=== PATIENT | male | born 1985 | race Caucasian/White ===

== ENCOUNTER 2017-03-23 01:23 | Emergency (ER) | payer MEDICAID, OTHER, SELFPAY ==
[~2017-03-23] VITALS: Ht 182.9 cm; Wt 85.8 kg
[2017-03-23 01:23] VITALS: BP 128/74
== END 2017-03-23 02:25 | disposition home or self-care (01) ==
LOC: ED 01:50
DX: L02.416 Cutaneous abscess of left lower limb (principal); L03.116 Cellulitis of left lower limb; Z88.1 Allergy status to other antibiotic agents
CPT/HCPCS: 99283

== ENCOUNTER 2019-09-22 19:07 | Emergency (ER) | payer MEDICAID ==
[~2019-09-22] VITALS: Ht 182.9 cm; Wt 88.4 kg
[2019-09-22 19:15] VITALS: BP 140/74
[2019-09-22] MEDS ORDERED: IBUPROFEN 200 MG TABLET PO ONE (20:00)
[2019-09-22] MEDS ORDERED: IBUPROFEN 200 MG TABLET ONE (20:34)
== END 2019-09-22 20:44 | disposition home or self-care (01) ==
LOC: ED 20:30
DX: K04.7 Periapical abscess without sinus (principal); K02.9 Dental caries, unspecified
CPT/HCPCS: 99283

== ENCOUNTER 2021-02-21 16:41 | Emergency (ER) | payer MEDICAID, OTHER ==
[~2021-02-21] VITALS: Ht 182.9 cm; Wt 93.7 kg
[2021-02-21 16:54] VITALS: BP 98/73
[2021-02-21] MEDS ORDERED: LIDODERM 5% PATCH TD ONE ×2 (17:21→17:30)
[2021-02-21] MEDS ORDERED: KETOROLAC 30 MG/1 ML ONE (17:21)
[2021-02-21] MEDS ORDERED: ACETAMINOPHEN 500 MG TABLET ONE (17:21)
[2021-02-21] MEDS ORDERED: ACETAMINOPHEN 500 MG TABLET PO ONE (17:30)
[2021-02-21] MEDS ORDERED: KETOROLAC 30 MG/1 ML IM ONE (17:30)
[2021-02-21 18:25] LABS: AMPHETAMINE SCREEN, URINE Negative (Negative); BARBITURATE SCREEN, URINE Negative (Negative); BENZODIAZEPINE SCREEN, URINE Negative (Negative); CANNABINOID SCREEN, URINE Negative (Negative)
[2021-02-21 18:27] LABS: COCAINE SCREEN, URINE Negative (Negative); METHADONE SCREEN, URINE Negative (Negative); OPIATE SCREEN, URINE Negative (Negative)
== END 2021-02-21 18:42 | disposition home or self-care (01) ==
LOC: ED 18:15
DX: S29.012A Strain of muscle and tendon of back wall of thorax, initial encounter (principal); X58.XXXA Exposure to other specified factors, initial encounter; Y93.89 Activity, other specified; Y92.89 Other specified places as the place of occurrence of the external cause; Y99.8 Other external cause status
CPT/HCPCS: 80307; 96372; 99283; J1885